=== PATIENT | male | born 1960 | race Caucasian/White ===

== ENCOUNTER → 2016-10-29 | Outpatient (CLI) | payer MEDICAID ==
[~2016-10-29] MED LIST: CEPH500C2 PO; TRAM50TA3 PO
[2016-10-29 12:36] LABS: BASOPHILS % 0.5 % (0.0-2.0); CLARITY URINE CLOUDY (CLEAR); COLOR URINE DARK YELLOW (YELLOW); EOSINOPHILS % 0.9 % (0.0-5.0); GLUCOSE URINE NEGATIVE (NEGATIVE); HEMATOCRIT. 41.1 % (42.0-52.0); KETONES URINE NEGATIVE (NEGATIVE); LEUKOCYTE ESTERASE URINE 2+ (NEGATIVE); LYMPHOCYTES % 12.1 % (20.0-50.0); MEAN CORPUSCULAR HEMOGLOBIN 29.9 pg (28.0-32.0); MEAN CORPUSCULAR VOLUME 87.8 fL (80.0-94.0); MEAN PLATELET VOLUME 7.7 fl (7.4-10.4); MONOCYTES % 13.1 % (2.0-8.0); NEUTROPHILS % 73.4 % (40.0-76.0); NITRITE URINE POSITIVE (NEGATIVE); OCCULT BLOOD URINE 2+ (NEGATIVE); PH URINE 5.5 (4.5-8.0); PLATELET 192 x1000/uL (130-400); PROTEIN URINE 2+ (NEGATIVE); RED BLOOD CELL COUNT 4.68 mill/uL (4.7-6.1); RED CELL DISTRIBUTION WIDTH 12.8 % (11.6-14.6); SPECIFIC GRAVITY URINE 1.036 (1.005-1.030)
[2016-10-29 12:48] LABS: CARBON DIOXIDE 29 mEq/L (21-32); CHLORIDE 104 mEq/L (98-107)
== END | disposition home or self-care (01) ==
LOC: LAB 11:47
PROVIDERS: ATTEND Urology
DX: Z01.818 Encounter for other preprocedural examination (principal); N21.0 Calculus in bladder
CPT/HCPCS: 36415; 71010; 80048; 81001; 85025; 93005

== ENCOUNTER 2016-11-01 06:11 | Day surgery (SDC) | payer MEDICAID ==
[~2016-11-01] VITALS: Ht 30.5 cm; Wt 0.5 kg
[2016-11-01] MEDS ORDERED: ONDANSETRON HCL 4MG/2ML VIAL IV PRN (07:30)
[2016-11-01] MEDS ORDERED: FENTANYL CITRATE/PF 50MCG/ML 2ML VIAL IV PRN (07:30)
[2016-11-01] MEDS ORDERED: MEPERIDINE HCL/PF 25MG/ML CPJ IV PRN (07:30)
[2016-11-01] MEDS ORDERED: LACTATED RINGERS 1,000 ML IV SCH (08:15)
[2016-11-01] MEDS ORDERED: CLINDAMYCIN 900 MG in DEXTROSE 5% WATER 50 ML IV NR (09:15)
[2016-11-01] MEDS ORDERED: EPHEDRINE SULFATE 50MG/ML VIAL ONE (09:48)
[2016-11-01] MEDS ORDERED: FENTANYL CITRATE/PF 50MCG/ML 2ML VIAL ONE (10:25)
[2016-11-01] MEDS ORDERED: TRAM50TA3 PO (10:28)
[2016-11-01] MEDS ORDERED: CEPH500C2 PO (10:28)
[2016-11-01 12:03] VITALS: BP 124/72
== END 2016-11-01 13:45 | disposition home or self-care (01) ==
LOC: OR 06:11
PROVIDERS: ATTEND Urology
DX: N21.0 Calculus in bladder (principal); Z87.891 Personal history of nicotine dependence; Z88.0 Allergy status to penicillin; K21.9 Gastro-esophageal reflux disease without esophagitis; I10 Essential (primary) hypertension
CPT/HCPCS: 52318; 82360; 88300; J0171; J2175; J3010; J3490; J7120; J7060

== ENCOUNTER 2017-02-06 11:20 | Emergency (ER) | payer MEDICAID ==
[~2017-02-06] VITALS: Ht 160 cm; Wt 88.5 kg
[2017-02-06 11:58] LABS: CLARITY URINE CLEAR (CLEAR); COLOR URINE YELLOW (YELLOW); GLUCOSE URINE NEGATIVE (NEGATIVE); KETONES URINE NEGATIVE (NEGATIVE); LEUKOCYTE ESTERASE URINE NEGATIVE (NEGATIVE); NITRITE URINE NEGATIVE (NEGATIVE); OCCULT BLOOD URINE NEGATIVE (NEGATIVE); PROTEIN URINE NEGATIVE (NEGATIVE); SPECIFIC GRAVITY URINE 1.023 (1.005-1.030); UROBILINOGEN URINE 0.2 E.U./dL (0.2-1.0)
[2017-02-06 12:30] VITALS: BP 153/68
[2017-02-06] MEDS ORDERED: ACETAMINOPHEN 500MG TABLET PO NR (12:45)
== END 2017-02-06 13:06 | disposition home or self-care (01) ==
LOC: ER 12:05
DX: K64.9 Unspecified hemorrhoids (principal); K59.09 Other constipation; R35.0 Frequency of micturition; I10 Essential (primary) hypertension; M54.30 Sciatica, unspecified side; Z88.0 Allergy status to penicillin
CPT/HCPCS: 81003; 82962; 99283

== ENCOUNTER 2017-04-15 10:36 | Emergency (ER) | payer MEDICAID ==
[~2017-04-15] VITALS: Ht 170.2 cm; Wt 87.0 kg
[2017-04-15 11:05] VITALS: BP 135/88
[2017-04-15 15:44] LABS: CLARITY URINE CLEAR (CLEAR); COLOR URINE YELLOW (YELLOW); KETONES URINE TRACE (NEGATIVE); LEUKOCYTE ESTERASE URINE NEGATIVE (NEGATIVE); NITRITE URINE NEGATIVE (NEGATIVE); OCCULT BLOOD URINE NEGATIVE (NEGATIVE); PROTEIN URINE NEGATIVE (NEGATIVE); SPECIFIC GRAVITY URINE 1.028 (1.005-1.030); UROBILINOGEN URINE 0.2 E.U./dL (0.2-1.0)
[2017-04-15] MEDS ORDERED: ACETAMINOPHEN 325MG TABLET PO ONE (17:30)
== END 2017-04-15 18:13 | disposition home or self-care (01) ==
LOC: ER 12:46
DX: R30.0 Dysuria (principal); I10 Essential (primary) hypertension; Z88.0 Allergy status to penicillin; Z90.49 Acquired absence of other specified parts of digestive tract
CPT/HCPCS: 76770; 81001; 99285